=== PATIENT | female | born 1995 | race Caucasian/White ===

== ENCOUNTER 2023-06-07 10:30 | Outpatient (CLI) | payer OTHER, SELFPAY ==
[2023-06-07 20:34] LABS: Vitamin D 25 Hydroxy < 12.8 ng/mL
[2023-06-07 21:01] LABS: Alanine Aminotransferase 54 U/L (6-35); Albumin Level 4.2 g/dL (3.5-5.1); Alkaline Phosphatase 89 U/L (38-126); Anion Gap 7 mmol/L (8-16); Aspartate Amino Transferase 44 U/L (14-36); Bilirubin,Total 0.5 mg/dL (0.2-1.3); Blood Urea Nitrogen 9 mg/dL (7-17); Calcium 9.2 mg/dL (8.4-10.2); Carbon Dioxide 26 mmol/L (22-30); Chloride 106 mmol/L (98-107); Cholesterol 192 mg/dL (0-200); Estimated Glomerular Filt Rate > 60; Glucose 96 mg/dL (65-110); HDL Direct 47 mg/dL; Potassium 4.1 mmol/L (3.4-5.0); Sodium 139 mmol/L (137-145); Triglycerides 73 mg/dL (<150)
[2023-06-07 21:12] LABS: LDL Cholesterol Direct 113 mg/dL
[2023-06-07 23:21] LABS: Hemoglobin A1C 5.6 % (<5.7)
== END 2023-06-07 10:31 | disposition home or self-care (01) ==
LOC: ANHGOSHLAB 10:31
PROVIDERS: PCP Family Medicine; Visit Provider Family Medicine
DX: E11.9 Type 2 diabetes mellitus without complications (principal); E78.00 Pure hypercholesterolemia, unspecified; Z13.228 Encounter for screening for other metabolic disorders; Z13.29 Encounter for screening for other suspected endocrine disorder; E55.9 Vitamin D deficiency, unspecified
CPT/HCPCS: 36415; 80053; 80061; 82306; 83036; 84443

== ENCOUNTER 2023-10-15 09:28 | Outpatient (CLI) | payer OTHER, SELFPAY ==
--- NOTE | ~2023-10-15 | XR_ITS ---
Elicia Vasquez Date of 1995 Lumbosacral Spine: AP, oblique, and lateral views Clinical History: Pain Findings: The normal lordotic curve is maintained. The vertebral bodies and posterior elements are i ntact. The intervertebral disc spaces are preserved. There is mild facet arthropathy from L3 through S1. The sacroiliac joints are normally outlined. Impression: Mild facet arthropathy from L3 through S1. Reviewed, dictated and finalized at location M. Impression: Mild facet arthropathy from L3 through S1.
== END 2023-10-15 09:29 ==
PROVIDERS: PCP Family Medicine; Visit Provider Family Medicine
DX: M54.50 Low back pain, unspecified (principal); M12.88 Other specific arthropathies, not elsewhere classified, other specified site
CPT/HCPCS: 72110

== ENCOUNTER 2024-03-07 14:32 | Outpatient (CLI) | payer OTHER, SELFPAY ==
--- NOTE | ~2024-03-07 | XR_ITS ---
EXAMINATION: XR chest 2V Exam Date/Time: 03/07/2024 14:40 CDT HISTORY: J39.8 - Other specified diseases of upper respiratory tract. Cough, congestion x2 weeks. Non smoker. Comparison: None. RESULT: Lines, tubes, and devices: None. Lungs and pleura: Clear. Cardiomediastinal silhouette: Normal. Other: No acute osseous or upper abdominal finding. IMPRESSION: No acute cardiopulmonary process. Reviewed, dictated and finalized at location K.
== END 2024-03-07 14:33 ==
PROVIDERS: PCP Family Medicine; Visit Provider Family Medicine
DX: J39.8 Other specified diseases of upper respiratory tract (principal)
CPT/HCPCS: 71046

== ENCOUNTER 2024-06-02 10:53 | Outpatient (CLI) | payer OTHER, SELFPAY | END 2024-06-02 10:54 | disposition home or self-care (01) | LOC: ANHGOSHLAB 10:55 | PROVIDERS: PCP Family Medicine; Visit Provider Family Medicine | DX: N91.2 Amenorrhea, unspecified (principal) | CPT/HCPCS: 36415; 84702 ==

== ENCOUNTER 2024-06-22 12:48 | Outpatient (CLI) | payer OTHER, SELFPAY ==
--- NOTE | ~2024-06-22 | US_ITS ---
EXAMINATION: US OB <=14 wk fetus w TV DATE: 06/22/2024 13:17 INDICATION: Amenorrhea TECHNIQUE: Real-time pelvic ultrasound utilizing both a transvaginal and transabdominal probe was pe rformed. The interpreting radiologist was not present for the study. COMPARISON: None. FINDINGS: The uterus measures 9.5 x 5.1 x 5.0 cm. There is an intrauterine gestational sac. A yolk sac and fet al pole are identified. The crown rump length measures 1.3 cm, which correlates with an estimated ges tational age of 7 weeks and 4 days. heart motion is identified measuring 167 beats per minute ( bpm) by M-mode Doppler. The right ovary is not visualized The left ovary measures 3.3 x 2.9 x 3.9 cm. Mani of identified at th e left ovary on color Doppler. There is a 2 cm ring of hypervascularity in the left ovary likely at t he periphery of an otherwise indiscernible corpus luteum cyst. There is no free fluid in the pelvis. IMPRESSION: 1. Single living fetus with heart rate of 167 bpm. 2. Gestational age by ultrasound of 7 weeks 4 day(s) +/- 5 day(s) with ultrasound estimated date of delivery (JOSE MARTIN) of 02/04/2025. Reviewed, dictated and finalized at location B. [employer] IMPRESSION: 1. Single living fetus with heart rate of 167 bpm. 2. Gestational age by ultrasound of 7 weeks 4 day(s) +/- 5 day(s) with ultraso und estimated date of delivery (JOSE MARTIN) of 02/04/2025.
== END 2024-06-22 12:49 | disposition home or self-care (01) ==
LOC: GOSHIMG 12:51
PROVIDERS: PCP Family Medicine; Visit Provider Family Medicine
DX: N91.2 Amenorrhea, unspecified (principal)
CPT/HCPCS: 76801; 76817